=== PATIENT | male | born 1970 | race Hispanic/Latino ===

== ENCOUNTER → 2022-01-18 | Day surgery (SDC) | payer BC ==
[2022-01-16 11:07] LABS: ANION GAP 12.2 mmol/L (8-16); CREATININE, SERUM 0.82 mg/dL (0.72-1.25); POTASSIUM 4.2 mmol/L (3.5-5.1)
[~2022-01-18] MED LIST: ASPIRIN81 MG PO; ATORVASTATIN CA20 MG PO; BUPIVACAINE 0.5%/EPI 30 ML SDV INJ ONE; FAMOTIDINE 20 MG/2 ML VIAL IV ONE; FENTANYL CITRATE/PF 100MCG/2 ML INJ ONE; JARDIANCE25 MG PO; KETOROLAC TROMETHAMINE 30 MG/ML VIAL IV ONE; LIDOCAINE HCL 2% LOCAL INJ 5 ML SDV VIAL INJ ONE; LISINOPRIL10 MG PO; METFORMIN HCL500 MG PO; METOCLOPRAMIDE HCL 10 MG/2ML VIAL IV ONE; MIDAZOLAM HCL 2 MG/2 ML VIAL ONE; ONDANSETRON HCL INJ 2MG/ML 2ML 2 MG/ML VIAL IV ONE; POVIDONE IODINE 0.05% 0.05 % ML PO ONE; PROPOFOL IV EMULSION 10 MG/ML 20 ML VIAL IV ONE; SEVOFLURANE INHAL SOLN 250 ML PEN BTL INH ONE; [UNRECOGNIZED DRUG - OTHER] OU
[2022-01-18 11:17] VITALS: BP 112/80
== END | disposition home or self-care (01) ==
LOC: OR 06:17
PROVIDERS: ATTEND Specialist
DX: S83.221A Peripheral tear of medial meniscus, current injury, right knee, initial encounter (principal); M17.11 Unilateral primary osteoarthritis, right knee; M22.41 Chondromalacia patellae, right knee; E11.9 Type 2 diabetes mellitus without complications; I10 Essential (primary) hypertension; X58.XXXA Exposure to other specified factors, initial encounter; Z01.810 Encounter for preprocedural cardiovascular examination; Z01.812 Encounter for preprocedural laboratory examination; Z79.82 Long term (current) use of aspirin; Z79.84 Long term (current) use of oral hypoglycemic drugs; Z79.899 Other long term (current) drug therapy; Z68.38 Body mass index [BMI] 38.0-38.9, adult
CPT/HCPCS: 29881; 36415 ×2; 80048; 82948; 93005; J0690; J1885; J2001; J2250; J2405; J2704; J2765; J3010